=== PATIENT | female | born 1950 | race African-American/Black ===

== ENCOUNTER 2018-06-29 09:06 | Inpatient (IN) | payer MEDICARE, OTHER ==
[~2018-06-29] VITALS: Ht 162.6 cm; Wt 47.2 kg
[~2018-06-29 09:06] MED LIST: ASPIR-LOW81 MG PO; BRIMONIDINE TART5 ML; CARDIZEM CD120 MG PO; CYCLOMYDRIL EYE5 ML OP; DUREZOL5 M1 OP; HYDROCHLOROTHIA25 MG PO; IMDUR60 MG PO; ISOSORBIDE DINI40 MG PO; METHAZOLAMIDE50 MG ORAL; NASONEX17 GM NS; NEOMYC-POLYM-D3.5 GM OP; NEURONTIN300 MG PO; NITROSTAT0.4 M1 SL; OFLOXACIN5 ML; ONDANSETRON ODT8 MG PO; PERCOCET 5-3251 EACH PO; PRED-G 1% EYE DR5 ML OP; PREDNISOLONE ACE5 ML; PREDNISONE20 MG PO; SYNTHROID50 MCG PO; TRAVATAN Z5 ML OP; VITAMIN D2400 UNI1 PO
[2018-06-29] MEDS ORDERED: PRAVASTATIN SOD40 M1 ORAL (09:38)
[2018-06-29] MEDS ORDERED: METOPROLOL TART25 MG ORAL (09:38)
[2018-06-29] MEDS ORDERED: BANOPHEN25 M1 PO (09:38)
[2018-06-29] MEDS ORDERED: VOLTAREN50 MG PO (09:38)
[2018-06-29] MEDS ORDERED: LORATADINE10 M1 PO (09:38)
[2018-06-29] MEDS ORDERED: MEGACE40 MG PO (09:38)
[2018-06-29] MEDS ORDERED: DUREZOL5 M1 OP (09:38)
[2018-06-29] MEDS ORDERED: NITROMIST4.1 GM TL (09:38)
[2018-06-29] MEDS ORDERED: ACETAMINOPHEN325 M1 ORAL (09:38)
[2018-06-29] MEDS ORDERED: ALPHAGAN P5 M2 OP (09:38)
[2018-06-29] MEDS ORDERED: OMEPRAZOLE20 M2 ORAL (09:38)
[2018-06-29] MEDS ORDERED: TRAMADOL HCL100 M2 ORAL (09:38)
[2018-06-29] MEDS ORDERED: TRAVATAN Z5 ML OP ×2 (09:38→21:38)
--- NOTE | 2018-06-29 09:38 | NUR ---
ED Nurse Note: Pt came from home w/ complaints of rt arm swelling since saturday. Complaining of 4/10 rt hand pain. Non radiating. skin warm to touch. A + O x4. Ambulatory. Noted to have +4 pitting edema on the rt arm. Boil noted as well on the rt arm. Pt states that it switches off from her arm and legs. friend at the bedside.
[2018-06-29 09:40] VITALS: BP 126/84
--- NOTE | 2018-06-29 09:43 | NUR ---
ED Nurse Note: Xray has been completed.
[2018-06-29] MEDS ORDERED: DiphenhydrAMINE 50mg/ml Inj IVP ONE (09:45)
[2018-06-29] MEDS ORDERED: Solu-MEDROL 125mg Inj IVP ONE (09:45)
--- NOTE | 2018-06-29 09:48 | Emergency Room Report ---
History of Present Illness General Chief Complaint: Edema Source: Patient, Medical Record Present Illness HPI Patient presents with complaints of swelling to the right hand itching blister formations patient also reports swelling to both of her feet Reports that she has been going through this for the past 1 year initially started last year in May Denies any chest pain or shortness of breath She reports that her medical coder told her to stop her eye pressure medication drops which she felt were causing some of the problems Denies any sore throat or swelling denies any difficulty breathing she reports that previously she had some Problems with her throat as well also gets a swelling in her facial region at times In the left hand Allergies: Coded Allergies: ACETAMINOPHEN (Verified Adverse Reaction, Intermediate, VOMIT, 05/12/12) vomit HYDROCODONE BIT (Verified Adverse Reaction, Intermediate, VOMIT, 05/12/12) vomit Patient History Past Medical History: see triage record Pertinent Family History: none Reviewed Nursing Documentation: PMH: Agreed; PSxH: Agreed Nursing Documentation-PMH Hx Cardiac Problems: Yes - Artery spasms, Miguel's, Glaucoma Hx Hypertension: Yes Hx COPD: Yes Hx Diabetes: Yes Hx Cancer: No Hx Gastrointestinal Problems: No Hx Neurological Problems: Yes - glaucoma thyroid arithitis Hx Cerebrovascular Accident: Yes Review of Systems All Other Systems: negative except mentioned in HPI Physical Exam Vital Signs Date Time Temp Pulse Resp B/P (MAP) Pulse Ox O2 Delivery O2 Flow Rate FiO2 06/29/18 09:12 97.3 76 18 113/75 100 Room Air 06/29/18 09:40 100 Sp02 EP Interpretation: reviewed, normal General Appearance: well appearing, no apparent distress Head: normocephalic, atraumatic Eyes: 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 ENT: hearing grossly normal, normal pharynx, TMs + canals normal, uvula midline Neck: full range of motion, supple, no meningismus, no bony tend Respiratory: lungs clear, normal breath sounds, no rhonchi, no respiratory distress, no retraction, no accessory muscle use Cardiovascular #1: normal peripheral pulses, regular rate, rhythm, no gallop, no JVD, no murmur Gastrointestinal: normal bowel sounds, non tender, soft, no mass, no organomegaly, non-distended, no guarding, no hernia, no pulsatile mass, no rebound Genitourinary: no CVA tenderness Musculoskeletal: normal inspection Neurologic: oriented x3, responsive, associate publisher III-XII nml as tested, motor strength/ tone normal, sensory intact Psychiatric: mood/affect normal Skin: other - Significant edema noted to the right hand several blister formations, also erythema, patient has also some edema in both lower extremities Lymphatic: normal inspection, no adenopathy Medical Decision Making Diagnostic Impression: Primary Impression: Edema Additional Impressions: Allergic reaction Dermatitis ER Course Multiple differentials considered the reaction on the right arm appears to be possibly allergic Patient has blister formation along with urticaria localized from the hand up to the forearm consideration for vascular issues also considered Patient had acute intervention is doing better given her comorbidities and the presentation will require further inpatient care Labs Test 06/29/18 09:30 White Blood Count 7.3 K/UL (4.8-10.8) Red Blood Count 4.70 M/UL (4.20-5.40) Hemoglobin 13.1 G/DL (12.0-16.0) Hematocrit 40.4 % (37.0-47.0) Mean Corpuscular Volume 86 FL (80-99) Mean Corpuscular Hemoglobin 27.9 PG (27.0-31.0) Mean Corpuscular Hemoglobin Concent 32.4 G/DL (32.0-36.0) Red Cell Distribution Width 12.8 % (11.6-14.8) Platelet Count 219 K/UL (150-450) Mean Platelet Volume 8.8 FL (6.5-10.1) Neutrophils (%) (Auto) 63.6 % (45.0-75.0) Lymphocytes (%) (Auto) 25.6 % (20.0-45.0) Monocytes (%) (Auto) 6.8 % (1.0-10.0) Eosinophils (%) (Auto) 3.0 % (0.0-3.0) Basophils (%) (Auto) 1.1 % (0.0-2.0) Sodium Level 137 MMOL/L (136-145) Potassium Level 3.3 MMOL/L (3.5-5.1) Chloride Level 106 MMOL/L (98-107) Carbon Dioxide Level 23 MMOL/L (21-32) Anion Gap 8 mmol/L (5-15) Blood Urea Nitrogen 26 mg/dL (7-18) Creatinine 1.2 MG/DL (0.55-1.30) Estimat Glomerular Filtration Rate 54.3 mL/min (>60) Glucose Level 104 MG/DL (74-106) Calcium Level 9.1 MG/DL (8.5-10.1) Total Bilirubin 0.5 MG/DL (0.2-1.0) Aspartate Amino Transf (AST/SGOT) 23 U/L (15-37) Alanine Aminotransferase (ALT/SGPT) 29 U/L (12-78) Alkaline Phosphatase 113 U/L (46-116) Total Creatine Kinase 39 U/L (26-308) Creatine Kinase MB < 0.5 NG/ML (0.0-3.6) Creatine Kinase MB Relative Index Troponin I 0.000 ng/mL (0.000-0.056) Pro-B-Type Natriuretic Peptide 67 pg/mL (0-125) Total Protein 7.2 G/DL (6.4-8.2) Albumin 3.5 G/DL (3.4-5.0) Globulin 3.7 g/dL Albumin/Globulin Ratio 0.9 (1.0-2.7) Rhythm Strip Diag. Results EP Interpretation: yes Rate: 77 Rhythm: NSR, no PVC's, no ectopy Chest X-Ray Diagnostic Results Chest X-Ray Diagnostic Results : Chest X-Ray Ordered: Yes # of Views/Limited/Complete: 1 View Indication: Chest Pain EP Interpretation: Yes Interpretation: no consolidation, no effusion, no pneumothorax, other - Mild pulmonary congestion Impression: Other - Mild pulmonary congestion Electronically Signed by: Racquel Thomas DO Last Vital Signs Date Time Temp Pulse Resp B/P (MAP) Pulse Ox O2 Delivery O2 Flow Rate FiO2 06/29/18 09:40 97.7 91 27 126/84 100 Room Air 06/29/18 09:40 100 Status: improved Disposition: ADMITTED INPATIENT Condition: Serious Referrals: NOT CHOSEN IPA/,REFERRING (PCP) Racquel Thomas DO Jun 29, 2018 09:48
--- NOTE | 2018-06-29 09:48 | Diagnostic Imaging Report ---
EXAM: XR Chest, 1 View CLINICAL HISTORY: Chest pain TECHNIQUE: Frontal view of the chest. COMPARISON: Chest x-rays dated 05/12/12 FINDINGS: Lungs: Mildly increased interstitial markings. The lungs are otherwise clear without focal consolidation. Pleural space: Unremarkable. The costophrenic angles are sharp. No visible pneumothorax. Heart: Unremarkable. No cardiomegaly. Mediastinum: Unremarkable. Bones/joints: Unremarkable. Vasculature: Mild atherosclerotic calcifications are noted within the aortic arch. Tubes, lines and devices: EKG leads overlie the thorax. IMPRESSION: Mildly increased interstitial markings. This is nonspecific but may suggest mild pulmonary vascular congestion or a mild interstitial pneumonitis. No focal consolidation.
[2018-06-29 09:49] LABS: BASOPHILS % (AUTO) 1.1 % (0.0-2.0); HEMATOCRIT 40.4 % (37.0-47.0); HEMOGLOBIN 13.1 G/DL (12.0-16.0); LYMPHOCYTES % (AUTO) 25.6 % (20.0-45.0); MEAN CORPUSCULAR VOLUME 86 FL (80-99); MONOCYTES % (AUTO) 6.8 % (1.0-10.0); NEUTROPHILS % (AUTO) 63.6 % (45.0-75.0); PLATELET COUNT 219 K/UL (150-450); RED CELL DISTRIBUTION WIDTH 12.8 % (11.6-14.8); WHITE BLOOD COUNT 7.3 K/UL (4.8-10.8)
[2018-06-29 09:56] LABS: ANION GAP 8 mmol/L (5-15); BLOOD UREA NITROGEN 26 mg/dL (7-18); CALCIUM 9.1 MG/DL (8.5-10.1); CARBON DIOXIDE 23 MMOL/L (21-32); CHLORIDE 106 MMOL/L (98-107); CREATININE 1.2 MG/DL (0.55-1.30); POTASSIUM 3.3 MMOL/L (3.5-5.1); SODIUM 137 MMOL/L (136-145)
[2018-06-29 10:14] LABS: ALANINE AMINOTRANSFERASE 29 U/L (12-78); ALBUMIN 3.5 G/DL (3.4-5.0); ALBUMIN/GLOBULIN RATIO 0.9 (1.0-2.7); ALKALINE PHOSPHATASE 113 U/L (46-116); ASPARTATE AMINO TRANSFERASE 23 U/L (15-37); BILIRUBIN,TOTAL 0.5 MG/DL (0.2-1.0); CKMB < 0.5 NG/ML (0.0-3.6); CREATINE KINASE 39 U/L (26-308)
[2018-06-29] MEDS ORDERED: Morphine Sulfate 2mg/ml Inj IVP PRN ×2 (12:30→14:15)
[2018-06-29] MEDS ORDERED: Zolpidem 5mg tab ORAL PRN (12:30)
[2018-06-29] MEDS ORDERED: Mylanta II UD 30ml ORAL PRN (12:30)
[2018-06-29] MEDS ORDERED: Miralax 17gm pkt ORAL PRN (12:30)
[2018-06-29] MEDS ORDERED: oxyCODONE HCL/Acetaminophen 5/325mg ORAL PRN (12:30)
[2018-06-29] MEDS ORDERED: LORazepam Inj 2mg/ml 1ml IV PRN (12:30)
[2018-06-29] MEDS: DIFLUPREDNATE EYE BOTH EYES SCH ×2 (13:00→18:00)
[2018-06-29 13:21] VITALS: BP 92/63
--- NOTE | 2018-06-29 13:42 | NUR ---
ED Nurse Note: US at the bedside.
--- NOTE | 2018-06-29 15:01 | NUR ---
ED Nurse Note: Us has been completed. US tech said negative for both studies.
[2018-06-29 15:09] VITALS: BP 98/59
--- NOTE | 2018-06-29 16:04 | History and Physical ---
History of Present Illness General Date patient seen: Jun 29, 2018 Reason for Hospitalization: Edema Present Illness HPI 68 year old female with PMHx of hypertension, Raynaud syndrome, COPD , diabetes , glaucoma, hypothyroidism, CVA, presented to ER with complaints of swelling of the right hand with itching and blister formation . And also some swelling in both of her feet. Patient reported that initial episode started about 1 year ago. She denied chest pain or shortness of breath. Allergies: Coded Allergies: IBUPROFEN (Verified Allergy, Mild, 06/29/18) ACETAMINOPHEN (Verified Adverse Reaction, Unknown, 06/29/18) vomiting HYDROCODONE (Verified Adverse Reaction, Unknown, 06/29/18) vomiting Medication History Scheduled Aspirin* (Aspir-Low*), 81 MG PO DAILY, (Reported) Brimonidine Tartrate (Alphagan P), 1 DRP OP TID, (Reported) Difluprednate (Durezol), 1 DROP OP TID, (Reported) Diltiazem Hcl* (Cardizem Cd*), 360 MG PO DAILY, (Reported) Diphenhydramine Hcl (Banophen), 25 MG PO Q12HR, (Reported) Gabapentin (Neurontin), 300 MG PO QHS, (Reported) Hydrochlorothiazide* (Hydrochlorothiazide*), 25 MG PO DAILY, (Reported) Isosorbide Mononitrate* (Imdur*), 120 MG PO DAILY, (Reported) Levothyroxine Sodium (Synthroid), 50 MCG PO DAILY, (Reported) Megestrol Acetate (Megestrol Acetate), 40 MG PO DAILY, (Reported) Metoprolol Tartrate* (Metoprolol Tartrate*), 25 MG ORAL EVERY 12 HOURS, ( Reported) Mometasone Furoate (Nasonex), 17 GM NS needed, (Reported) Nitroglycerin (Nitrostat), 0.4 MG SL Q5M X3 DOSES, (Reported) Omeprazole (Omeprazole), 20 MG ORAL DAILY, (Reported) Ondansetron Odt* (Zofran Odt*), 8 MG PO Q12H Oxycodone/Acetaminophen 5-325* (Percocet 5-325 Mg Tablet*), 1 EACH PO Q4H Pravastatin Sod (Pravastatin Sod), 20 MG ORAL BEDTIME, (Reported) Prednisone* (Prednisone*), 20 MG PO DAILY, (Reported) Tramadol Hcl (Tramadol Hcl), 50 MG ORAL Q6HR, (Reported) Travoprost (Travatan Z), 1 DROP OP BEDTIME, (Reported) Scheduled PRN Acetaminophen* (Acetaminophen 325MG Tablet*), 500 MG ORAL Q6HR PRN for Prn Headache/Temp > 101, (Reported) Diphenhydramine Hcl (Banophen), 25 MG PO Q12HR PRN for Itching, (Reported) Ondansetron Odt* (Zofran Odt*), 8 MG ORAL Q6H PRN for Nausea & Vomiting, ( Reported) Miscellaneous Medications Brimonidine Tartrate* (Alphagan*), 1 DROP, (Reported) Cyclopentolate/Phenylephrine (Cyclomydril Eye Drops), ML OP, (Reported) Diclofenac Sod (Diclofenac Potassium), 50 MG PO, (Reported) Difluprednate (Durezol), 5 ML OP, (Reported) Ergocalciferol (Vitamin D2) (Vitamin D2), 400 UNIT PO, (Reported) Gentamicin/Prednisol Ac (Pred-G 1% Eye Drops), 5 ML OP, (Reported) Loratadine (Loratadine), 10 MG PO, (Reported) Methazolamide (Methazolamide*), 50 MG ORAL, (Reported) Nitroglycerin (Nitromist), 4.1 GM TL, (Reported) Ofloxacin (Ofloxacin), ML, (Reported) Prednisolone Acetate (Prednisolone Acetate), ML, (Reported) Travoprost (Travatan Z), Unknown Dose OP, (Reported) Travoprost (Travatan Z), 5 ML OP, (Reported) Patient History Healthcare decision maker Resuscitation status Advanced Directive on File Past Medical/Surgical History Past Medical/Surgical History: (1) HTN (hypertension) (2) COPD (chronic obstructive pulmonary disease) (3) Diabetes mellitus (4) History of CVA (cerebrovascular accident) Review of Systems All Other Systems: negative except mentioned in HPI Physical Exam General Appearance: WD/WN Lines, tubes and drains: peripheral HEENT: normocephalic, atraumatic Neck: normal alignment Respiratory/Chest: chest wall non-tender, normal breath sounds Cardiovascular/Chest: normal peripheral pulses, normal rate Abdomen: normal bowel sounds, no organomegaly Genitourinary/Rectal: normal genital exam Skin Exam: cyanotic Last 24 Hour Vital Signs Date Time Temp Pulse Resp B/P (MAP) Pulse Ox O2 Delivery O2 Flow Rate FiO2 06/29/18 15:09 97.5 90 21 98/59 100 Room Air 06/29/18 13:21 97.5 81 16 92/63 100 Room Air 06/29/18 09:40 97.7 91 27 126/84 100 Room Air 06/29/18 09:40 91 27 Room Air 100 06/29/18 09:12 97.3 76 18 113/75 100 Room Air Laboratory Tests Test 06/29/18 09:30 White Blood Count 7.3 K/UL (4.8-10.8) Red Blood Count 4.70 M/UL (4.20-5.40) Hemoglobin 13.1 G/DL (12.0-16.0) Hematocrit 40.4 % (37.0-47.0) Mean Corpuscular Volume 86 FL (80-99) Mean Corpuscular Hemoglobin 27.9 PG (27.0-31.0) Mean Corpuscular Hemoglobin Concent 32.4 G/DL (32.0-36.0) Red Cell Distribution Width 12.8 % (11.6-14.8) Platelet Count 219 K/UL (150-450) Mean Platelet Volume 8.8 FL (6.5-10.1) Neutrophils (%) (Auto) 63.6 % (45.0-75.0) Lymphocytes (%) (Auto) 25.6 % (20.0-45.0) Monocytes (%) (Auto) 6.8 % (1.0-10.0) Eosinophils (%) (Auto) 3.0 % (0.0-3.0) Basophils (%) (Auto) 1.1 % (0.0-2.0) Sodium Level 137 MMOL/L (136-145) Potassium Level 3.3 MMOL/L (3.5-5.1) L Chloride Level 106 MMOL/L (98-107) Carbon Dioxide Level 23 MMOL/L (21-32) Anion Gap 8 mmol/L (5-15) Blood Urea Nitrogen 26 mg/dL (7-18) H Creatinine 1.2 MG/DL (0.55-1.30) Estimat Glomerular Filtration Rate 54.3 mL/min (>60) Glucose Level 104 MG/DL (74-106) Calcium Level 9.1 MG/DL (8.5-10.1) Total Bilirubin 0.5 MG/DL (0.2-1.0) Aspartate Amino Transf (AST/SGOT) 23 U/L (15-37) Alanine Aminotransferase (ALT/SGPT) 29 U/L (12-78) Alkaline Phosphatase 113 U/L (46-116) Total Creatine Kinase 39 U/L (26-308) Creatine Kinase MB < 0.5 NG/ML (0.0-3.6) Creatine Kinase MB Relative Index Troponin I 0.000 ng/mL (0.000-0.056) Pro-B-Type Natriuretic Peptide 67 pg/mL (0-125) Total Protein 7.2 G/DL (6.4-8.2) Albumin 3.5 G/DL (3.4-5.0) Globulin 3.7 g/dL Albumin/Globulin Ratio 0.9 (1.0-2.7) L Height (Feet): 5 Height (Inches): 4.00 Weight (Pounds): 104 Medications Current Medications Medications (Trade) Dose Ordered Sig/Jena Route PRN Reason Start Time Stop Time Status Last Admin Dose Admin Al Hydroxide/Mg Hydroxide (Mylanta II) 30 ml Q6H PRN ORAL dyspepsia 06/29/18 12:30 07/29/18 12:29 Dextrose (Dextrose 50%) 25 ml Q30M PRN IV Hypoglycemia 06/29/18 12:45 07/29/18 12:40 Dextrose (Dextrose 50%) 50 ml Q30M PRN IV hypoglycemia 06/29/18 12:45 07/29/18 12:44 Diltiazem HCl (Cardizem CD) 360 mg DAILY ORAL 06/30/18 09:00 07/30/18 08:59 Gabapentin (Neurontin) 300 mg QHS ORAL 06/29/18 21:00 07/29/18 20:59 Levothyroxine Sodium (Synthroid) 50 mcg Q24H ORAL 06/30/18 06:30 07/30/18 06:29 Lorazepam (Ativan 2mg/ml 1ml) 0.5 mg Q4H PRN IV For Anxiety 06/29/18 12:30 07/06/18 12:29 Metoprolol Tartrate (Lopressor) 25 mg EVERY 12 HOURS ORAL 06/29/18 21:00 07/29/18 20:59 Morphine Sulfate (Morphine Sulfate) 1 mg Q4H PRN IVP severe pain 06/29/18 14:15 07/06/18 12:29 Ondansetron HCl (Zofran) 4 mg Q6H PRN IVP Nausea & Vomiting 06/29/18 12:30 07/29/18 12:29 Polyethylene Glycol (Miralax) 17 gm HSPRN PRN ORAL Constipation 06/29/18 12:30 07/29/18 12:29 Zolpidem Tartrate (Ambien) 5 mg HSPRN PRN ORAL Insomnia 06/29/18 12:30 07/06/18 12:29 Assessment/Plan Problem List: (1) Raynaud phenomenon ICD Codes: I73.00 - Raynaud's syndrome without gangrene SNOMED: 029536088 (2) COPD (chronic obstructive pulmonary disease) ICD Codes: J44.9 - Chronic obstructive pulmonary disease, unspecified SNOMED: 64235563 (3) Diabetes mellitus ICD Codes: E11.9 - Type 2 diabetes mellitus without complications SNOMED: 01491673 (4) HTN (hypertension) ICD Codes: I10 - Essential (primary) hypertension SNOMED: 87476774 (5) History of CVA (cerebrovascular accident) ICD Codes: Z86.73 - Personal history of transient ischemic attack (TIA), and cerebral infarction without residual deficits SNOMED: 053003546 Assessment/Plan rheumatology evaluation symptomatic treatment Olimpia Vazquez MD Jun 29, 2018 16:04
[2018-06-29 17:08] VITALS: BP 88/65
--- NOTE | 2018-06-29 17:54 | NUR ---
ED Nurse Note: 3D echo currently being completed at the bedside.
--- NOTE | 2018-06-29 18:14 | NUR ---
ED Nurse Note: Tried giving report, RN unavailable. Will try again in a few mins.
--- NOTE | 2018-06-29 18:29 | NUR ---
ED Nurse Note: Gave telephone report to MANDI Loya. Bed unavailable. Will call back in 10 mins.
--- NOTE | 2018-06-29 18:36 | NUR ---
ED Nurse Note: Tried transferring pt up to unit. Bed unavailable.
--- NOTE | 2018-06-29 18:46 | NUR ---
ED Nurse Note: Bed unavailable.
--- NOTE | 2018-06-29 19:02 | NUR ---
HAND-OFF: Report given to MANDI Thomas.
[2018-06-29 19:22] VITALS: BP 113/67
--- NOTE | 2018-06-29 19:30 | NUR ---
ED Nurse Note: Lasix Medication (20mg/2ml) not found in pyxis. called pharm. pharm will refill pyxis.
--- NOTE | 2018-06-29 19:48 | NUR ---
ED Nurse Note: Pt is transfered to 4E with MANDI MARQUEZ, pt vital signs, status and condition is reported to ERMD prior to transfer. pt has been transfered with all belongings. pt is alert and oriented times 4.
--- NOTE | 2018-06-29 20:00 | NUR ---
Received a report from MANDI Barkley. Still waiting for the pt's arrival.
--- NOTE | 2018-06-29 20:00 | NUR ---
NURSE NOTES: Received a report from MANDI Barkley. Still waiting for the pt's arrival.
--- NOTE | 2018-06-29 20:05 | NUR ---
HAND-OFF: Report given to MANDI Wallace. Pt never received in 4E unit.
--- NOTE | 2018-06-29 20:15 | NUR ---
ED Nurse Note: spoke with raymundo from pharmacy, instructed to override 20mg/2ml lasix. aware and approved.
[2018-06-29 21:00] VITALS: BP 120/79
--- NOTE | 2018-06-29 21:30 | NUR ---
NURSE NOTES: Pt came in the unit. AAOX4. Able to make needs known. No respiratory distress noted. No c/o pain/discomfort. IV site is patent and intact. Bed in lowest position. Skin is intact. R forearm blister formations. Belongings checked and with the pt. Call light within reach. Will continue to monitor.
--- NOTE | 2018-06-29 21:31 | NUR ---
NURSE NOTES: Will send the home meds to the pharmacy tomorrow morning.
[2018-06-29] MEDS ORDERED: BANOPHEN25 MG PO (21:32)
--- NOTE | 2018-06-29 21:45 | NUR ---
NURSE NOTES: Pt stated that she's allergic to Ibuprofen and Vicodin. But, she also stated that she's not allergic to Acetaminophen and Hydrocodone. RN Missy and Charge Nurse Kassandra both clarified that with the pt, because Vicodin contains Acetaminophen and Hydrocodone. Pt stated that she was taking Acetaminophen at home.
[2018-06-29] MEDS: Brimonidine 0.2% Opth Sol BOTH EYES SCH (22:00)
[2018-06-29] MEDS ORDERED: Ondansetron ODT 8mg tab ORAL SCH (22:00)
--- NOTE | 2018-06-29 22:00 | NUR ---
NURSE NOTES: Per Dr. Vazquez, it's ok to continue home meds.
[2018-06-29] MEDS ORDERED: ZOFRAN ODT8 MG ORAL (22:14)
[2018-06-29] MEDS ORDERED: Acetaminophen 500mg (ES) tab ORAL PRN (22:30)
[2018-06-29] MEDS ORDERED: Brimonidine 0.2% Opth Sol BOTH EYES SCH (23:00)
[2018-06-29] MEDS: traMADol 50mg tab ORAL PRN (23:38)
[2018-06-29] MEDS: Metoprolol 25mg tab ORAL SCH (23:39)
[2018-06-30] VITALS: BP 101/68
[2018-06-30] MEDS ORDERED: Albuterol 90mcg Inhaler 8gm INH PRN
[2018-06-30 04:00] VITALS: BP 105/70
--- NOTE | 2018-06-30 06:30 | NUR ---
NURSE NOTES: Per Dr. Vazquez, it's ok to use the eye drops of the pt from home.
[2018-06-30] MEDS: traMADol 50mg tab ORAL PRN (06:43)
--- NOTE | 2018-06-30 06:45 | NUR ---
NURSE NOTES: Home meds sent to the pharmacy.
--- NOTE | 2018-06-30 07:00 | NUR ---
HAND-OFF: Report given to Cate Acuna. Endorsed about the 2 eye drops to follow up and also to disregard the blank non formulary med.
--- NOTE | 2018-06-30 08:00 | NUR ---
NURSE NOTES: Received patient in bed, resting and alert X4. Patient denies pain. No signs of respiratory distress. IV intact. Bed in lowest position, call light within reach. Fall precautions placed in room. Will continue to monitor.
[2018-06-30 08:19] VITALS: BP 118/75
[2018-06-30] MEDS: dilTIAZem HCl CD 120mg cap ORAL SCH ×2 (08:21→09:49)
[2018-06-30 08:24] LABS: HEMATOCRIT 36.5 % (37.0-47.0); HEMOGLOBIN 11.9 G/DL (12.0-16.0); MEAN CORPUSCULAR VOLUME 85 FL (80-99); PLATELET COUNT 197 K/UL (150-450); RED BLOOD COUNT 4.27 M/UL (4.20-5.40); RED CELL DISTRIBUTION WIDTH 12.3 % (11.6-14.8); WHITE BLOOD COUNT 13.3 K/UL (4.8-10.8)
[2018-06-30 08:54] LABS: ALANINE AMINOTRANSFERASE 33 U/L (12-78); ALBUMIN 3.3 G/DL (3.4-5.0); ALBUMIN/GLOBULIN RATIO 0.9 (1.0-2.7); ALKALINE PHOSPHATASE 96 U/L (46-116); ANION GAP 9 mmol/L (5-15); ASPARTATE AMINO TRANSFERASE 17 U/L (15-37); BILIRUBIN,TOTAL 0.3 MG/DL (0.2-1.0); BLOOD UREA NITROGEN 28 mg/dL (7-18); CALCIUM 9.2 MG/DL (8.5-10.1); CARBON DIOXIDE 25 MMOL/L (21-32); CHLORIDE 105 MMOL/L (98-107); CHOLESTEROL 158 MG/DL (< 200); CREATININE 0.9 MG/DL (0.55-1.30); HDL CHOLESTEROL 63 MG/DL (40-60); POTASSIUM 3.7 MMOL/L (3.5-5.1); SODIUM 139 MMOL/L (136-145); TRIGLYCERIDES 38 MG/DL (30-150)
[2018-06-30] MEDS ORDERED: Imdur 30mg tab ORAL SCH (09:00)
[2018-06-30] MEDS ORDERED: Aspirin EC 81mg tab ORAL SCH (09:00)
[2018-06-30] MEDS: Metoprolol 25mg tab ORAL SCH (09:41)
[2018-06-30] MEDS: DIFLUPREDNATE EYE BOTH EYES SCH ×2 (09:47→13:21)
[2018-06-30] MEDS: Brimonidine 0.2% Opth Sol BOTH EYES SCH ×2 (10:57→13:29)
[2018-06-30 12:00] VITALS: BP 99/59
--- NOTE | 2018-06-30 12:41 | NUR ---
RD ASSESSMENT & RECOMMENDATIONS SEE CARE ACTIVITY FOR COMPLETE ASSESSMENT DAILY ESTIMATED NEEDS: Needs based on Underweight status/ 47kg 30-35 kcals/kg 7370-5833 total kcals 1-1.5 g protein/kg 47-70 g total protein 25-30 mL/kg 9203-5216 total fluid mLs NUTRITION DIAGNOSIS: * Increased kcal/prot needs R/T underweight status as evidenced by pt @ 87% IBW, low BMI per guidelines. * Chewing deficit R/T poor dentition as evidenced by pt missing many lower teeth, requesting soft easy chew texture. * Low sodium intake needs R/T fluid retention, cardiac hx as evidenced by admitted w/ edematous rt arm, h/o CVA. CURRENT DIET: REGULAR + ENSURE ENLIVE TID PO DIET RECOMMENDATIONS: LOW NA/ Downgrade texture to soft easy chew ADDITIONAL RECOMMENDATIONS: * STANDING WEIGHT for accurate CBW, weekly wt monitoring -currently on a bed without bedscale * Continue Ensure Enlive TID w/ meals * Snacks BID in b/w meals * Consider adjusting thyroid med -> TSH <0.010 * Monitor lytes, replete as needed * Monitor PO intake closely
--- NOTE | 2018-06-30 16:10 | NUR ---
CASE MANAGEMENT:REVIEW FROM HOME TO ER CC: EDEMA. ARM SWELLING SINCE SATURDAY SI: EDEMA. ALLERGIC REACTION 97.3 76 18 92/63 100% ON RA K-3.3 IS: IV SOLUMEDROL IV BENADRYL IV PEPCID CXR : TO MED/SURG INTERQUAL CRITERIA MET
--- NOTE | 2018-06-30 16:49 | NUR ---
NURSE NOTES: Patient discharged with taxi to home address provided by patient. IV and ID band removed. Discharge packet given to patient. Provided education on discharge meds, s/s to go to ER or see MD for, and safety. Belongings verified with patient. Patient discharged in stable condition.
[2018-06-30] MEDS ORDERED: TRAVOPROST ORAL SCH (21:00)
--- NOTE | 2018-06-30 21:48 | Pulmonology Progress Note ---
Assessment/Plan Problems: (1) Raynaud phenomenon (2) History of CVA (cerebrovascular accident) (3) HTN (hypertension) (4) Diabetes mellitus (5) COPD (chronic obstructive pulmonary disease) Assessment/Plan rheumatology evaluation not available at [facility] right now symptomatic treatment dc with close f/u with primary Subjective ROS Limited/Unobtainable: No Interval Events: pt feeling better, Allergies: Coded Allergies: IBUPROFEN (Verified Allergy, Mild, 06/29/18) ACETAMINOPHEN (Verified Adverse Reaction, Unknown, 06/29/18) vomiting HYDROCODONE (Verified Adverse Reaction, Unknown, 06/29/18) vomiting Objective Last 24 Hour Vital Signs Date Time Temp Pulse Resp B/P (MAP) Pulse Ox O2 Delivery O2 Flow Rate FiO2 06/30/18 12:00 97.7 92 20 99/59 (72) 97 06/30/18 09:49 92 118/75 06/30/18 09:41 118/75 06/30/18 09:41 92 118/75 06/30/18 09:00 Room Air 06/30/18 08:21 92 118/75 06/30/18 08:19 98.0 92 21 118/75 (89) 97 06/30/18 04:00 97.4 88 18 105/70 (82) 98 06/30/18 00:00 97.6 86 19 101/68 (79) 99 06/29/18 23:39 99 120/79 Intake and Output 06/29/18 06/30/18 19:00 07:00 Intake Total 400 ml Output Total 0 ml Balance 0 ml 400 ml Intake Oral 400 ml Output Urine Total 0 ml # Voids 1 General Appearance: WD/WN HEENT: normocephalic, atraumatic Respiratory/Chest: chest wall non-tender, lungs clear Breasts: no masses Cardiovascular: normal rate Abdomen: normal bowel sounds, soft, non tender Genitourinary: normal external genitalia Skin: no rash Laboratory Tests 06/30/18 06:57: White Blood Count 13.3#H, Red Blood Count 4.27, Hemoglobin 11.9L, Hematocrit 36.5L, Mean Corpuscular Volume 85, Mean Corpuscular Hemoglobin 27.8, Mean Corpuscular Hemoglobin Concent 32.6, Red Cell Distribution Width 12.3, Platelet Count 197, Mean Platelet Volume 8.3, Neutrophils (%) (Auto) , Lymphocytes (%) ( Auto) , Monocytes (%) (Auto) , Eosinophils (%) (Auto) , Basophils (%) (Auto) , Differential Total Cells Counted 100, Neutrophils % (Manual) 87H, Lymphocytes % (Manual) 9L, Monocytes % (Manual) 4, Eosinophils % (Manual) 0, Basophils % ( Manual) 0, Band Neutrophils 0, Platelet Estimate Adequate, Platelet Morphology Normal, Sodium Level 139, Potassium Level 3.7, Chloride Level 105, Carbon Dioxide Level 25, Anion Gap 9, Blood Urea Nitrogen 28H, Creatinine 0.9, Estimat Glomerular Filtration Rate > 60, Glucose Level 120H, Calcium Level 9.2, Total Bilirubin 0.3, Aspartate Amino Transf (AST/SGOT) 17, Alanine Aminotransferase ( ALT/SGPT) 33, Alkaline Phosphatase 96, Total Protein 6.9, Albumin 3.3L, Globulin 3.6, Albumin/Globulin Ratio 0.9L, Triglycerides Level 38, Cholesterol Level 158, LDL Cholesterol 80, HDL Cholesterol 63H, Cholesterol/HDL Ratio 2.5L, Thyroid Stimulating Hormone (TSH) < 0.010L Olimpia Vazquez MD Jun 30, 2018 21:48
--- NOTE | 2018-07-01 11:43 | Discharge Summary ---
Discharge Summary Discharge Summary _ DATE OF ADMISSION: 06/29/2018 DATE OF DISCHARGE: 06/30/2018 DISCHARGED BY: Dr. Vazquez REASON FOR ADMISSION: 68 years old female with past medical history of hypertension, Raynaud syndrome , COPD , diabetes , glaucoma, hypothyroidism , history of CVA, presented with complaints of swelling of the right hand . Patient reported itching and blister formation . Patient also reported swelling in both of her feet. Patient reported that initial episode started about 1 year ago. She denied chest pain or shortness of breath. Her healthcare translator told her to stop taking high pressure medication job which she felt according to the time of the problem. Patient denied sore throat or sweating. She denied difficulty breathing. Upon evaluation vital signs were stable. Laboratory workup revealed no leukocytosis, stable hemoglobin and hematocrit. Potassium 3.3. BUN 26 creatinine 1.2 , stable LFT. Troponin negative , pro BNP 67, EKG showed normal sinus rhythm, no acute ischemic changes. Chest x-ray revealed no acute cardiopulmonary pathology, but demonstrated mildly increased interstitial markings. Possible mild pulmonary vascular congestion. No focal consolidation. Albumin 3.5 with BMI 17.9. Patient was admitted for further management HOSPITAL COURSE: Patient admitted to medical surgical floor. Venous Duplex was negative for evidence of acute DVT. Patient received 1 dose of steroid Patient started on H2 and H1 blockers. Symptomatic treatment with antipruritic provided as needed. Potassium was replaced. Megace was added to medication regimen. Protein supplements implemented in plan of care. Rheumatology evaluation was not available at this time in the hospital. Blood pressure was managed with calcium channel kelle and beta-kelle. Antiplatelet therapy with aspirin and statin were continued. Glaucoma eyedrops resumed. Supplemental oxygen was on board as needed along with pulmonary toilet. Pulse oximetry was stable on room air. Patient clinically improved and was ready for discharge home . Patient to follow-up with primary care provider next week , recommended rheumatology evaluation as outpatient. Due to rapid and unexpected improvement in patient condition , patient was discharged in 1 day. FINAL DIAGNOSES: Dermatitis Allergic reaction Raynaud's phenomena HTN COPD Mild hypokalemia History of CVA DISCHARGE MEDICATIONS: See Medication Reconciliation list. DISCHARGE INSTRUCTIONS: Patient was discharged home . Follow up with primary care provider in one week. Recommended rheumatology evaluation as outpatient I have been assigned to dictate discharge summary for this account. I was not involved in the patient's management. Glo Go NP Jul 01, 2018 11:43
--- NOTE | 2018-07-02 15:00 | Cardiology Report ---
APPROVED REPORT EXAM: Two-dimensional and M-mode echocardiogram with Doppler and color Doppler. INDICATION Left ventricular function M-Mode DIMENSIONS IVSd1.2 (0.7-1.1cm)Left Atrium (MM)2.5 (1.6-4.0cm) LVDd3.0 (3.5-5.6cm)Aortic Root2.6 (2.0-3.7cm) PWd1.2 (0.7-1.1cm)Aortic Cusp Exc.1.8 (1.5-2.0cm) LVDs1.0 (2.5-4.0cm) PWs1.8 cm Normal left ventricular chamber size, systolic function and wall motion. Left ventricular ejection fraction estimated to be 60 %. Mild left ventricular hypertrophy. Anterior Echo-free space, may be due to pericardial fat or effusion. All other cardiac chamber sizes are within normal limits. Mild focal aortic valve sclerosis with adequate cusp excursion. Mildly thickened mitral valve leaflets with normal excursion. Mild mitral annulus and aortic root calcification. Pulmonic valve not well visualized. Normal tricuspid valve structure. IVC dilated at 2.1 cm without physiological collapse, suggestive of increased RA pressure. A color flow and spectral Doppler study was performed and revealed: Trace aortic insufficiency. Peak aortic valve gradient of 12 mmHg and a mean of 5 mmHg. Aortic valve area 1.4 cm2 calculated by continuity equation. Trace mitral regurgitation. Mitral diastolic velocities suggest mild left ventricular diastolic dysfunction (Grade I). Mild tricuspid regurgitation. Tricuspid systolic velocities suggests peak right ventricular systolic pressure of 43 mmHg, consistent with mild pulmonary hypertension.
--- NOTE | 2018-07-03 19:57 | Cardiology Report ---
APPROVED REPORT EKG Measurement Heart [id number] Normal sinus rhythm Voltage criteria for left ventricular hypertrophy T wave abnormality, consider anterior ischemia Abnormal ECG
== END 2018-06-30 16:49 | disposition home or self-care (01) | DRG 607 ==
LOC: EMR 09:38 → 4E 10:55 → EDBEDREQ 18:12
DX: L27.1 Localized skin eruption due to drugs and medicaments taken internally (principal); T46.5X5A Adverse effect of other antihypertensive drugs, initial encounter; I73.00 Raynaud's syndrome without gangrene; J44.9 Chronic obstructive pulmonary disease, unspecified; E11.9 Type 2 diabetes mellitus without complications; I10 Essential (primary) hypertension; Z86.73 Personal history of transient ischemic attack (TIA), and cerebral infarction without residual deficits; Z88.6 Allergy status to analgesic agent; E87.6 Hypokalemia; H40.9 Unspecified glaucoma
CPT/HCPCS: 36415; 71045; 80053; 80061; 82550; 82553; 83880; 84443; 84484; 85007; 85025; 93005; 93306; 93970; 96374; 96375; 99285; J8499